=== PATIENT | female | born 1995 | race Caucasian/White ===

== ENCOUNTER 2021-03-31 02:01 | Emergency (ER) | payer OTHER ==
[~2021-03-31] VITALS: Ht 157.5 cm; Wt 57.6 kg
[2021-03-31] MEDS ORDERED: GILTUSS ALLERG118 ML PO (05:31)
[2021-03-31] MEDS ORDERED: ALBUTEROL2.5 MG/3 M IH (05:31)
== END 2021-03-31 05:38 ==
LOC: ER 02:01
DX: J06.9 Acute upper respiratory infection, unspecified (principal)